=== PATIENT | female | born 1950 | race Caucasian/White ===

== ENCOUNTER 2016-08-19 15:41 | Emergency (ER) | payer OTHER ==
[~2016-08-19] VITALS: Ht 157.5 cm; Wt 99.6 kg
[~2016-08-19 15:41] MED LIST: ALBUTEROL SULF8.5 GM IH; ASPIRIN81 M2 PO; BRILINTA90 MG PO; CETIRIZINE HCL10 M2 PO; CHILD ASPIRIN81 M1 PO; CLONIDINE IT; COZAAR50 MG PO; Cipro PO; Cozaar PO; DOXEPIN HCL150 MG PO; DOXEPIN HCL75 MG PO; DRISDOL50000 UNIT PO; FENOFIBRATE160 M1 PO; FERROUS SULFAT324 M1 PO; FERROUS SULFAT325 MG PO; FISH OIL 1,2001 EAC1 PO; FLORASTOR250 MG PO; Feosol PO; IMDUR60 MG PO; IRON325 M1 PO; Imdur PO; K-DUR20 MEQ PO; LANTUS 10100 UNITS/ SC; LANTUS 3 M100 UNITS1 SC; LASIX40 MG PO; LEVOFLOXACIN500 MG PO; LEVOTHYROXINE175 MCG PO; LIPITOR80 MG PO; LOFIBRA,TRIGLI160 MG PO; Lipitor PO; METRONIDAZOLE500 MG PO; MIDRIN1 CAPSULE PO; MORPHINE IT; MULTIVITAMIN1 EAC2 PO; NOVOLOG 10100 UNITS/ SC; NOVOLOG PE100 UNITS/ SC; NovoLOG Pen 3 ml SC; OMEGA 3-6-9 CO1 EACH PO; OMEGA-3 + VITA1 EAC1 PO; OMEPRAZOLE40 M1 PO; OXYCODONE HCL15 MG PO; PLAVIX75 MG PO; PRILOSEC40 MG PO; Plavix PO; Proventil,Ventolin H IH; ROXICODONE15 MG PO; SINEQUAN75 MG PO; TOPAMAX100 MG PO; TOPROL XL25 MG PO; TOPROL XL6.25 MG PO; TRICOR145 MG PO; Theragran PO; Topamax PO; Toprol XL PO; VENTOLIN HFA18 GM IH; VITAMIN D250000 UNIT PO; Vitamin D, Drisdol PO; WOMEN'S 50+ DA1 EACH PO; XANAX0.5 MG PO; Xanax PO; ZANAFLEX2 MG PO; ZANAFLEX4 M1 PO; ZANAFLEX4 MG PO; ZOFRAN4 MG PO; ZYRTEC10 M3 PO; Zofran PO; [UNRECOGNIZED DRUG - OTHER] PO; oxyCODONE PO
[2016-08-19] MEDS ORDERED: VICTOZA 2-0.6 MG/0.1 SC (17:55)
[2016-08-19] MEDS ORDERED: HUMULIN R500 UNIT/1 SC (17:55)
[2016-08-19] MEDS ORDERED: LEVOXYL200 MCG PO (17:56)
[2016-08-19] MEDS ORDERED: LIDODERM 5% P1 PATCH TD (18:35)
[2016-08-19 19:16] VITALS: BP 162/60
== END 2016-08-19 19:17 | disposition home or self-care (01) ==
LOC: EME 15:41
DX: S63.501A Unspecified sprain of right wrist, initial encounter (principal); X58.XXXA Exposure to other specified factors, initial encounter; G56.01 Carpal tunnel syndrome, right upper limb; I10 Essential (primary) hypertension; E11.9 Type 2 diabetes mellitus without complications; Z79.4 Long term (current) use of insulin; G89.29 Other chronic pain; Z79.891 Long term (current) use of opiate analgesic; Z95.5 Presence of coronary angioplasty implant and graft; Z79.02 Long term (current) use of antithrombotics/antiplatelets; Z79.82 Long term (current) use of aspirin
CPT/HCPCS: 73110; 99281; 99284

== ENCOUNTER 2016-09-10 16:58 | Emergency (ER) | payer OTHER ==
[~2016-09-10] VITALS: Ht 152.4 cm; Wt 99.0 kg
[~2016-09-10 16:58] MED LIST changes: +HUMULIN R500 UNIT/1 SC; +LEVOXYL200 MCG PO; +LIDODERM 5% P1 PATCH TD; +VICTOZA 2-0.6 MG/0.1 SC
[2016-09-10 17:47] LABS: HEMATOCRIT 35.7 % (36.0-46.0); MCH 26.9 PG (29.0-34.0); MCHC 32.2 G/DL (30.0-36.0); MCV 83.6 FL (83-99); MEAN PLAT.VOLUME 10.7 uM^3 (9.5-12.4); PLATELET COUNT 313 K/uL (156-360); RBC DIS.WIDTH-CV 14.6 % (11.8-14.6); RBC DIS.WIDTH-SD 44.4 % (39-53); RED BLOOD COUNT 4.27 M/uL (3.80-5.20); WHITE BLOOD COUNT 10.1 K/uL (4.1-10.2)
[2016-09-10 18:11] LABS: CHLORIDE 99 mEq/L (99-109); POTASSIUM 4.5 mEq/L (3.7-5.4); SODIUM 138 mEq/L (136-147)
[2016-09-10 18:13] LABS: GLUCOSE 233 mg/dL (70-99)
[2016-09-10 18:14] LABS: ANION GAP 13 MEQ/L (2-14)
[2016-09-10 18:17] LABS: GFR ESTIMATE (CALCULATED) 27 mL/min/; UREA NITROGEN (BUN) 36 mg/dL (9-23)
[2016-09-10] MEDS ORDERED: ROBITUSSIN AC,T10 ML PO (18:38)
[2016-09-10] MEDS ORDERED: ZITHROMAX Z-PA250 MG PO (18:38)
[2016-09-10] MEDS ORDERED: PROAIR HFA8.5 GM IH (18:41)
[2016-09-10 18:59] VITALS: BP 177/73
== END 2016-09-10 19:20 | disposition home or self-care (01) ==
LOC: EME 16:58
DX: J40 Bronchitis, not specified as acute or chronic (principal); E11.9 Type 2 diabetes mellitus without complications; I10 Essential (primary) hypertension; I25.2 Old myocardial infarction; K21.9 Gastro-esophageal reflux disease without esophagitis; Z87.442 Personal history of urinary calculi; Z86.73 Personal history of transient ischemic attack (TIA), and cerebral infarction without residual deficits; Z88.1 Allergy status to other antibiotic agents; Z88.0 Allergy status to penicillin; Z91.040 Latex allergy status
CPT/HCPCS: 71020; 80048; 85027; 99281; 99284

== ENCOUNTER 2017-02-12 07:24 | Day surgery (SDC) | payer OTHER ==
[~2017-02-12] VITALS: Ht 152.4 cm; Wt 99.0 kg
[~2017-02-12 07:24] MED LIST changes: +MORPHINE SCCONT; +PROAIR HFA8.5 GM IH; +ROBITUSSIN AC,T10 ML PO; +ZITHROMAX Z-PA250 MG PO; +[UNRECOGNIZED DRUG - OTHER] INTRA-CATH
[2017-02-12] MEDS ORDERED: BYSTOLIC10 MG PO (08:02)
[2017-02-12] MEDS ORDERED: COLACE100 MG PO (08:07)
[2017-02-12 08:11] VITALS: BP 196/83
[2017-02-12 08:12] LABS: POINT-OF-CARE METER ID UU14174212
[2017-02-12 15:33] VITALS: BP 148/68
== END 2017-02-12 17:35 | disposition home or self-care (01) ==
LOC: SDC 07:24 → 2SOUTH 10:57 → EDSTATUS 10:57 → SDC 10:58
PROVIDERS: Podiatrist Foot & Ankle Surgery
DX: M24.477 Recurrent dislocation, right toe(s) (principal); M19.071 Primary osteoarthritis, right ankle and foot; M20.11 Hallux valgus (acquired), right foot; M21.611 Bunion of right foot; M20.5X1 Other deformities of toe(s) (acquired), right foot; J44.9 Chronic obstructive pulmonary disease, unspecified; I10 Essential (primary) hypertension; E11.9 Type 2 diabetes mellitus without complications; G47.30 Sleep apnea, unspecified; Z79.82 Long term (current) use of aspirin; Z87.891 Personal history of nicotine dependence; Z79.02 Long term (current) use of antithrombotics/antiplatelets; Z86.73 Personal history of transient ischemic attack (TIA), and cerebral infarction without residual deficits; Z79.4 Long term (current) use of insulin
CPT/HCPCS: 73630; 76000; 82948; C1769; J0131; J1100; J2250; J2405; J2710; J2795; J3010; J7120; Q0175; S0020

== ENCOUNTER 2017-05-05 21:26 | Observation (INO) | payer OTHER, BC ==
[~2017-05-05] VITALS: Ht 154.9 cm; Wt 94.6 kg
[~2017-05-05 21:26] MED LIST changes: -ASPIRIN81 M2 PO; +BYSTOLIC10 MG PO; +CLONIDINE SCCONT; +COLACE100 MG PO; +COZAAR100 MG PO; -LEVOXYL200 MCG PO; +LO-DOSE ASPIRIN81 M2 PO; -OMEGA 3-6-9 CO1 EACH PO; +OMEGA 3-6-9 CO400 MG PO; +OXYCODONE HCL10 MG PO; +SYNTHROID200 MCG PO; -TRICOR145 MG PO
[2017-05-05 21:56] LABS: HEMATOCRIT 38.4 % (36.0-46.0); MCH 27.8 PG (29.0-34.0); MCHC 33.9 G/DL (30.0-36.0); MCV 82.1 FL (83-99); PLATELET COUNT 274 K/uL (156-360); RBC DIS.WIDTH-CV 15.1 % (11.8-14.6); RBC DIS.WIDTH-SD 45.1 % (39-53); RED BLOOD COUNT 4.68 M/uL (3.80-5.20); WHITE BLOOD COUNT 11.3 K/uL (4.1-10.2)
[2017-05-05 22:05] LABS: ALBUMIN 4.2 g/dL (3.2-4.8); CHLORIDE 101 mEq/L (99-109); POTASSIUM 4.2 mEq/L (3.7-5.4); SODIUM 138 mEq/L (136-147)
[2017-05-05 22:07] LABS: TOTAL PROTEIN 7.4 g/dL (6.4-8.3)
[2017-05-05 22:09] LABS: TOTAL BILIRUBIN 0.7 mg/dL (0.0-1.0)
[2017-05-05 22:11] LABS: ALKALINE PHOSPHATASE 64 IU/L (3-129); CREATININE 1.6 mg/dL (0.6-1.3); GFR ESTIMATE (CALCULATED) 34 mL/min/
[2017-05-05 22:12] LABS: AST (GOT) 71 IU/L (2-34); UREA NITROGEN (BUN) 34 mg/dL (9-23)
[2017-05-05 22:14] LABS: ALT (GPT) 50 IU/L (3-49)
[2017-05-05 22:36] LABS: GLUCOSE 452 mg/dL (70-99)
[2017-05-05 23:32] LABS: LIPASE 36 U/L (1.0-51.0)
[2017-05-05 23:38] LABS: TROP-I INTERPRETATION NEGATIVE; TROPONIN-I 0.04 ng/mL (0.0-0.30)
[2017-05-06 04:47] LABS: BASE EXCESS 1.1 mEq/L (-3 to +3); BICARBONATE 25.1 mEq/L (22-26); CARBOXY HGB 2.2 % (0-5); METHEMOGLOBIN 0.8 % (0-1.5); PCO2 37 mm Hg (35-45); PO2 76 mm Hg (80-100); pH 7.44 (7.35-7.45)
[2017-05-06 04:49] LABS: COMMENTS - BLOOD GASES A+C+; DEVICE ROOM AIR; FI02 21 %; O2 FLOW 0 L/MIN; SITE RR; TOTAL RESP RATE 20 resp/min
[2017-05-06 05:44] LABS: TROP-I INTERPRETATION NEGATIVE; TROPONIN-I 0.03 ng/mL (0.0-0.30)
[2017-05-06 06:29] LABS: APPEARANCE CLEAR ((CLEAR)); BILIRUBIN NEGATIVE; BLOOD NEGATIVE; COLOR YELLOW ((YELLOW)); GLUCOSE (STRIP) >=500; KETONES 20; LEUKOCYTES NEGATIVE; NITRITE NEGATIVE; PROTEIN (STRIP) NEGATIVE; SPECIFIC GRAVITY 1.022 (1.000-1.030); UCUL ADDED? NO; UROBILINOGEN 0.2 MG/DL (0.2-1.0)
[2017-05-06] MEDS ORDERED: SYNTHROID25 MCG PO (08:40)
[2017-05-06] MEDS ORDERED: RANITIDINE HCL300 MG PO (08:44)
[2017-05-06] MEDS ORDERED: HUMULIN R500 UNIT/1 SC (08:44)
[2017-05-06] MEDS ORDERED: CARDURA2 M1 PO (08:44)
[2017-05-06] MEDS ORDERED: MIRTAZAPINE7.5 MG PO (08:44)
[2017-05-06] MEDS ORDERED: NITROSTAT0.4 MG SL (08:44)
[2017-05-06 14:55] VITALS: BP 146/59; BP 189/74
[2017-05-06 20:00] VITALS: BP 165/73
[2017-05-06 23:46] VITALS: BP 157/65
[2017-05-07 05:12] LABS: HEMATOCRIT 31.9 % (36.0-46.0); MCH 26.8 PG (29.0-34.0); PLATELET COUNT 230 K/uL (156-360); RBC DIS.WIDTH-CV 15.3 % (11.8-14.6); RBC DIS.WIDTH-SD 48.2 % (39-53); WHITE BLOOD COUNT 8.1 K/uL (4.1-10.2)
[2017-05-07 05:13] LABS: HEMOGLOBIN 9.9 G/DL (11.9-15.5); MCV 86.2 FL (83-99)
[2017-05-07 05:35] LABS: CHLORIDE 108 MEQ/L (99-109); CREATININE 1.4 MG/DL (0.6-1.3); GFR ESTIMATE (CALCULATED) 40 mL/min/; POTASSIUM 4.2 MEQ/L (3.7-5.4); SODIUM 140 MEQ/L (136-147); UREA NITROGEN (BUN) 27 mg/dL (9-23)
[2017-05-07 05:39] LABS: GLUCOSE 204 mg/dL (70-99)
[2017-05-07 08:52] VITALS: BP 131/61
[2017-05-07] MEDS ORDERED: BENTYL10 MG PO (09:45)
[2017-05-07] MEDS ORDERED: ZOFRAN4 MG PO (09:52)
[2017-05-07 12:29] VITALS: BP 134/87
== END 2017-05-07 14:46 | disposition home or self-care (01) ==
LOC: EME 21:26 → EDOF 05-06 07:47 → 5WEST 05-06 07:47 → ENRESERV 05-06 07:57 → 5WEST 05-06 14:24
PROVIDERS: Internal Medicine; Physician Assistant
DX: R10.9 Unspecified abdominal pain (principal); R19.7 Diarrhea, unspecified; R11.2 Nausea with vomiting, unspecified; E86.0 Dehydration; E11.65 Type 2 diabetes mellitus with hyperglycemia; E11.22 Type 2 diabetes mellitus with diabetic chronic kidney disease; I12.9 Hypertensive chronic kidney disease with stage 1 through stage 4 chronic kidney disease, or unspecified chronic kidney disease; N18.3 Chronic kidney disease, stage 3 (moderate); E89.0 Postprocedural hypothyroidism; E78.5 Hyperlipidemia, unspecified; I25.10 Atherosclerotic heart disease of native coronary artery without angina pectoris; I25.2 Old myocardial infarction; Z95.5 Presence of coronary angioplasty implant and graft; G89.29 Other chronic pain; Z96.89 Presence of other specified functional implants; N83.201 Unspecified ovarian cyst, right side; N83.202 Unspecified ovarian cyst, left side; Z90.710 Acquired absence of both cervix and uterus; Z79.4 Long term (current) use of insulin; G47.30 Sleep apnea, unspecified; E66.9 Obesity, unspecified; Z86.73 Personal history of transient ischemic attack (TIA), and cerebral infarction without residual deficits; Z87.891 Personal history of nicotine dependence; I45.10 Unspecified right bundle-branch block; I44.0 Atrioventricular block, first degree; N20.0 Calculus of kidney; Z87.442 Personal history of urinary calculi; Z90.49 Acquired absence of other specified parts of digestive tract; Z80.0 Family history of malignant neoplasm of digestive organs; Z82.3 Family history of stroke; Z91.040 Latex allergy status; Z88.8 Allergy status to other drugs, medicaments and biological substances; Z88.1 Allergy status to other antibiotic agents; Z88.0 Allergy status to penicillin
CPT/HCPCS: 36600; 71046; 74176; 76856; 80048; 80053; 81003; 82010; 82378; 82803; 82948; 83630; 83690; 84484; 85027; 86301 90; 86304; 87177; 87493; 87506; 87641; 93005; 99281; 99285; C9113; G0378; J1815; J2270; J2405; J2765; J3010; J7030